=== PATIENT | female | born 1985 | race American Indian/Alaskan Native ===

== ENCOUNTER 2018-12-25 18:01 | Emergency (ER) | payer OTHER ==
[~2018-12-25] VITALS: Ht 157.5 cm; Wt 59.0 kg
[2018-12-25 18:35] VITALS: BP 136/89; TEMP 97.7
== END 2018-12-25 20:10 | disposition home or self-care (01) ==
LOC: ED 18:01
DX: R11.2 Nausea with vomiting, unspecified (principal); R19.7 Diarrhea, unspecified; R10.9 Unspecified abdominal pain
CPT/HCPCS: 99281

== ENCOUNTER 2019-02-23 04:04 | Emergency (ER) | payer OTHER ==
[~2019-02-23] VITALS: Ht 157.5 cm; Wt 63.0 kg
[2019-02-23 04:19] VITALS: TEMP 97.8
[2019-02-23 04:41] LABS: PLATELET COUNT 317 K/uL (152-353)
[2019-02-23 04:58] LABS: POTASSIUM 4.4 mmol/L (3.6-5.2)
[2019-02-23 08:57] VITALS: BP 136/78
== END 2019-02-23 08:57 | disposition home or self-care (01) ==
LOC: ED 04:04
PROVIDERS: Student in an Organized Health Care Education/Training Program
DX: K21.9 Gastro-esophageal reflux disease without esophagitis (principal); K29.60 Other gastritis without bleeding; R11.2 Nausea with vomiting, unspecified
CPT/HCPCS: 36415; 80053; 81000; 81025; 82150; 83690; 83735; 85027; 86318; 96360; 96375; 99284; J2270; J2405; Q9963

== ENCOUNTER 2019-03-04 01:03 | Observation (INO) | payer OTHER ==
[~2019-03-04] VITALS: Ht 157.5 cm; Wt 61.2 kg
[2019-03-04 01:19] VITALS: BP 154/93; TEMP 98.1
[2019-03-04 02:17] LABS: PLATELET COUNT 314 K/uL (152-353)
[2019-03-04 02:22] LABS: POTASSIUM 3.7 mmol/L (3.6-5.2)
[2019-03-04 03:21] VITALS: BP 144/90; TEMP 98.7; Ht 157.5 cm; Wt 61.2 kg
[2019-03-04 08:00] VITALS: BP 110/72; TEMP 97.8
[2019-03-04 12:00] VITALS: BP 134/86; TEMP 97.8
== END 2019-03-04 19:28 | disposition home or self-care (01) ==
LOC: ED 01:03 → MED/SURG 02:33
PROVIDERS: Emergency Medicine; ADMIT Internal Medicine
DX: K80.80 Other cholelithiasis without obstruction (principal)
CPT/HCPCS: 80053; 82150; 83690; 85027; 96365; 96366; 96367; 96374; 96375; 99220; 99284; G0378; J2175; J2405; J2543; J3490

== ENCOUNTER 2019-03-08 07:42 | Day surgery (SDC) | payer OTHER ==
[~2019-03-08] VITALS: Ht 30.5 cm; Wt 0.5 kg
== END 2019-03-08 11:02 | disposition home or self-care (01) ==
LOC: OR 07:42
PROC: 0DB68ZZ Excision of Stomach, Via Natural or Artificial Opening Endoscopic (ICD-10-PCS; principal; 2019-03-08)
DX: K29.50 Unspecified chronic gastritis without bleeding (principal); R10.84 Generalized abdominal pain; R10.13 Epigastric pain; K44.9 Diaphragmatic hernia without obstruction or gangrene
CPT/HCPCS: J2001; J2250; J2405; J2704; J3490

== ENCOUNTER 2019-10-22 13:12 | Outpatient (CLI) | payer OTHER | END 2019-10-22 19:40 | disposition home or self-care (01) | LOC: NM 13:12 | DX: K80.20 Calculus of gallbladder without cholecystitis without obstruction (principal) | CPT/HCPCS: A9537 ==

== ENCOUNTER 2020-09-09 23:23 | Emergency (ER) | payer OTHER ==
[~2020-09-09] VITALS: Ht 157.5 cm; Wt 61.2 kg
[2020-09-10 01:07] VITALS: BP 149/96; TEMP 99
== END 2020-09-10 01:07 | disposition home or self-care (01) ==
LOC: ED 23:23
DX: N76.0 Acute vaginitis (principal); B37.3 Candidiasis of vulva and vagina
CPT/HCPCS: 87210; 87220; 87490; 87590; 99284